=== PATIENT | female | born 1980 | race African-American/Black ===

== ENCOUNTER 2019-10-04 22:45 | Inpatient (IN) ==
--- NOTE | 2019-10-04 23:00 | PROVIDER DOCUMENTATION ---
HPI-Psychological Disorder - General Stated Complaint: pysch Time Seen by Provider: 10/04/19 22:49 Source: patient Allergies/Adverse Reactions: Patient Allergies Allergy/AdvReac Type Severity Reaction Status Date / Time No Known Allergies Allergy Verified 10/04/19 23:16 Home Medications: Home Medication List Medication Instructions Recorded Confirmed Last Taken Type NK [No Home Medications] 10/04/19 10/04/19 Unknown History - History of Present Illness-Psych Nature of Presenting Problem: Patient was brought in by ems with sucidal Ideations. She has been drinking today. She states she has been suicidal before and has been on medications in the past but hasnt taken any for a "minute". She3 told EMS she was going to hang herself with a telephone cord. Onset/Duration: reports: gradual Timing: reports: still present Severity: reports: moderate Situational problems related to:: reports: N/A Psychiatric Complaints: reports: depressed, suicidal ideation Substance Use: reports: none/never, alcohol Previous psych related hospitalizations?: Yes Patient arrived by:: EMS called by patient Similar Symptoms Previously?: Yes Recently seen or treated by another doctor?: No - Suicidal Ideation Suicide Risk Assessment: depressed, prior attempt, drug or ETOH abuse, no social supports Clinician's estimation of suicide risk?: high risk Suicidal Attempt Method: reports: Hanging Review of Systems - Adult - REVIEW OF SYSTEMS - ADULT Constitutional: reports: no symptoms reported Eyes: reports: no symptoms reported Ears, Nose, Mouth & Throat: reports: no symptoms reported Cardiovascular: reports: no symptoms reported Respiratory: reports: no symptoms reported Genitourinary: reports: no symptoms reported Musculoskeletal: reports: no symptoms reported Integumentary: reports: no symptoms reported, see HPI Psychiatric: reports: see HPI Endocrine: reports: no symptoms reported Hematologic/Lymphatic: reports: no symptoms reported Allergic/Immunologic: reports: no symptoms reported Past History - Adult - PAST MEDICAL HISTORY-ADULT Review of Records: reports: Old Records Reviewed, Nursing Assessment Review Major Childhood Illnesses: reports: denies history Cardiovascular: reports: HTN Respiratory: reports: denies history Gastrointestinal: reports: denies history Obstetrical/Gynecological: reports: denies history Genitourinary: reports: denies history Musculoskeletal: reports: denies history Neurological: reports: denies history Psychiatric: reports: bipolar, depression, schizophrenia Endocrine/Immune: reports: denies history Other Conditions: reports: denies history Additional History: PIH - PRIOR SURGERIES/PROCEDURES Surgical/Procedure History: reports: , gastric bypass - IMMUNIZATION STATUS Childhood Immunizations: See Nurse Assessment Flu Vaccine: See Nurse Assessment - FAMILY HISTORY Family History: reviewed, not pertinent Physical Exam-Psych Focus - Physical Exam-Psych Initial Vital Signs Reviewed: Yes Appearance: appropriate appearance, no apparent distress, no memory impairment, alert Neurological: alert, oriented x 3, depressed affect (crying episodes) Behavior/Eye Contact/Speech: good eye contact, normal speech Thoughts/Hallucinations: normal thought pattern, no apparent hallucination HENMT: normocephalic/atraumatic, moist mucous membranes, normal ENT inspection, TMs normal, pharynx normal Neck: non-tender, full range of motion, supple Respiratory: chest non-tender, lungs clear, normal breath sounds, no pleuratic chest pain Cardiovascular: normal peripheral pulses, regular rate, rhythm, no edema, no gallop, no JVD, no murmur Abdominal Exam: normal bowel sounds, non tender, soft, no organomegaly, no pulsatile mass Lymphatic: no adenopathy Back Exam: normal inspection, no CVA tenderness, no vertebral tenderness Extremity: normal range of motion, non-tender, normal gait, no pedal edema Integumentary: normal color, normal turgor, warm/dry Progress - PLAN OF CARE/RESULTS Progress/Plan/Lab Results: Vital Signs - 8 hr 10/04/19 22:55 10/05/19 05:12 Temperature 98.6 F 98.6 F Pulse Rate 108 H 90 Respiratory Rate 16 16 Blood Pressure 141/110 138/82 O2 Sat by Pulse Oximetry 100 98 Laboratory Results - last 24 hr 10/04/19 10/04/19 10/04/19 22:25 22:25 23:01 WBC RBC Hgb Hct MCV MCH MCHC RDW Std Deviation Plt Count MPV Immature Gran % (Auto) Neut % (Auto) Lymph % (Auto) [place] % (Auto) Eos % (Auto) Baso % (Auto) Immature Gran # (Auto) Neut # (Auto) Lymph # (Auto) [place] # (Auto) Eos # (Auto) Baso # (Auto) Sodium 151 H Potassium 3.6 Chloride 107 Carbon Dioxide 23 L Anion Gap 21 BUN 16 Creatinine 0.8 Estimated GFR/1.73 m2 > 60 BUN/Creatinine Ratio 20 Glucose 101 Calculated Osmolality 301 Calcium 8.7 L Total Bilirubin 0.16 L AST 41 H ALT 28 Alkaline Phosphatase 134 H Total Protein 7.6 Albumin 4.0 Globulin 3.6 Albumin/Globulin Ratio 1.1 TSH Urine Test NEGATIVE Urine Opiates Screen NONE DETECTED Ur Oxycodone Screen NONE DETECTED Ur Methadone, Qual NONE DETECTED Ur Barbiturates Screen NONE DETECTED Ur Phencyclidine Scrn NONE DETECTED Ur Amphetamines Screen NONE DETECTED U Benzodiazepines Scrn NONE DETECTED Urine Cocaine Screen NONE DETECTED U Cannabinoids Screen NONE DETECTED Plasma/Serum Ethyl Alc 10/04/19 10/04/19 10/04/19 23:01 23:01 23:01 WBC 4.49 L RBC 4.62 Hgb 12.1 Hct 38.3 MCV 82.9 MCH 26.2 L MCHC 31.6 L RDW Std Deviation 16.4 H Plt Count 249 MPV 9.6 Immature Gran % (Auto) 0.0 Neut % (Auto) 23.2 L Lymph % (Auto) 64.4 H [place] % (Auto) 11.1 H Eos % (Auto) 0.2 Baso % (Auto) 1.1 H Immature Gran # (Auto) 0.00 Neut # (Auto) 1.04 L Lymph # (Auto) 2.89 [place] # (Auto) 0.50 Eos # (Auto) 0.01 Baso # (Auto) 0.05 Sodium Potassium Chloride Carbon Dioxide Anion Gap BUN Creatinine Estimated GFR/1.73 m2 BUN/Creatinine Ratio Glucose Calculated Osmolality Calcium Total Bilirubin AST ALT Alkaline Phosphatase Total Protein Albumin Globulin Albumin/Globulin Ratio TSH 0.80 Urine Test Urine Opiates Screen Ur Oxycodone Screen Ur Methadone, Qual Ur Barbiturates Screen Ur Phencyclidine Scrn Ur Amphetamines Screen U Benzodiazepines Scrn Urine Cocaine Screen U Cannabinoids Screen Plasma/Serum Ethyl Alc 366 H Orders Category Date Time Status ALCOHOL BLOOD Stat Lab 10/04/19 23:01 Completed CBC WITH ELECTRONIC DIFF [HEME] Stat Lab 10/04/19 23:01 Completed COMPREHENSIVE METABOLIC PANEL [CHEM] Stat Lab 10/04/19 23:01 Completed TEST-URINE [PREG] Stat Lab 10/04/19 22:25 Completed TSH Stat Lab 10/04/19 23:01 Completed URINE DRUG SCREEN Stat Lab 10/04/19 22:25 Completed 0.9% Sodium Chloride Inj [Ns] 1,000 ml Med 10/05/19 03:07 Active IV 100 mls/hr 0.9% Sodium Chloride Inj [Ns] 1,000 ml Med 10/05/19 00:23 Discontinued IV 999 mls/hr Lorazepam [Ativan] Med 10/04/19 23:33 Discontinued 0.5 mg IV NOW ONE Result Diagrams: 10/04/19 23:01 10/04/19 23:01 - CONSULTS/PCP/HOSPITALIST Notification #1 *Consult/PCP/Hospitalist*: Jessicao Time Discussed: 19:15 Consult Disposition: Will see in ED, Admit - CHANGE OF SHIFT REPORT (ED Provider) 1 Report Given and Care Transferred to:: Dr Christensen Time of Transfer: 07:00 Items Pending: Other ([facility]) 2 Report Given and Care Transferred to:: Dr Rodriguez Time of Transfer: 19:00 Items Pending: Labs, Physician Consult/Arrival Departure - Departure Date of Disposition Decision: 10/05/19 Time of Disposition Decision: 19:15 DIAGNOSIS: Alcohol abuse Disposition: ADMITTED INPATIENT 09 Certified Medical Emergency: Emergent Condition: Stable Referrals and Follow-Ups: None,PCP [Primary Care Provider] - - Critical Care Note This patient required my direct & personal management of CC.: No Attestation - Physician/ SANTOSH Attestation Patient care was provided by Advanced Practice Provider:: No The physician spent face to face time with patient:: Yes Advanced Practice Provider documentation review:: Supervising physician onsite and consulted in the evaluation and care of this patient. The physician did have a face to face encounter with the patient.
[2019-10-04 23:24] LABS: BASO# 0.05 X1000 (0.0-0.2); BASO% 1.1 % (0.0-0.8); EOS# 0.01 X1000 (0.0-0.7); EOS% 0.2 % (0.0-10.0); HEMATOCRIT 38.3 % (37.0-47.0); HEMOGLOBIN 12.1 g/dL (12.0-16.0); LYMPH# 2.89 X1000 (1.2-3.4); LYMPH% 64.4 % (20.5-51.1); MCH 26.2 PG (27-31); MCHC 31.6 g/dL (33-37); MCV 82.9 FL (81-99); MONO% 11.1 % (1.7-9.3); MPV 9.6 FL (7.4-10.4); NEUT# 1.04 X1000 (1.4-6.5); NEUT% 23.2 % (42.2-75.2); PLT 249 X1000 (130-400); RBC 4.62 XMIL (4.2-5.4); RDW 16.4 % (11.5-14.5); WBC 4.49 X1000 (4.8-10.8)
[2019-10-04] MEDS ORDERED: ATIVAN IV ONE (23:33)
[2019-10-04 23:37] LABS: AGAP 21; ALB/GLOB RATIO 1.1; ALKALINE PHOSPHATASE 134 U/L (32-104); BUN 16 mg/dL (8-22); CALCIUM 8.7 mg/dL (8.8-10.2); CHLORIDE 107 mmol/L (98-107); COSMO 301; CREATININE 0.8 mg/dL (0.5-0.9); ESTIMATED GFR > 60; GLUCOSE 101 mg/dL (70-104); GOT 41 U/L (10-30); GPT 28 U/L (10-36); POTASSIUM 3.6 mmol/L (3.5-5.1); SODIUM 151 mmol/L (136-145); TCO2 23 mmol/L (25-35); TOTAL BILIRUBIN 0.16 mg/dL (0.20-1.00); TOTAL PROTEIN 7.6 g/dL (6.3-8.3)
[2019-10-05 00:06] LABS: UR AMPHETAMINES QUAL NONE DETECTED (NONE DETECT); UR BARBITUATES QUAL NONE DETECTED (NONE DETECT); UR BENZODIAZEPIN QUAL NONE DETECTED (NONE DETECT); UR CANNABINOIDS QUAL NONE DETECTED (NONE DETECT); UR COCAINE QUAL NONE DETECTED (NONE DETECT); UR METHADONE QUAL NONE DETECTED (NONE DETECT); UR OPIATES QUAL NONE DETECTED (NONE DETECT); UR OXYCODONE QUAL NONE DETECTED (NONE DETECT); UR PCP QUAL NONE DETECTED (NONE DETECT)
[2019-10-05] MEDS ORDERED: NS 1,000 ML IV ONE ×3 (00:23→08:41)
[2019-10-05] MEDS ORDERED: ZOFRAN IV ONE (08:41)
[2019-10-05] MEDS ORDERED: TYLENOL PO ONE ×2 (10:14→21:19)
[2019-10-05] MEDS ORDERED: THIAMINE 100 MG in NS 50 ML IV ONE (22:37)
[2019-10-05] MEDS ORDERED: LIBRIUM PO PRN (22:39)
[2019-10-05] MEDS ORDERED: NS 1,000 ML IV SCH (22:45)
[2019-10-05] MEDS ORDERED: THIAMINE 100 MG in NS 50 ML IV SCH (22:45)
[2019-10-05] MEDS ORDERED: FOLIC ACID 1 MG in NS 50 ML IV SCH (23:48)
[2019-10-06] MEDS ORDERED: ZOFRAN IV PRN (05:41)
[2019-10-06] MEDS ORDERED: PRILOSEC PO SCH (07:00)
--- NOTE | 2019-10-06 07:22 | HISTORY AND PHYSICAL ---
CHIEF COMPLAINT: Suicidal ideation. HISTORY OF PRESENT ILLNESS: Ms. Aaliyah Mcarthur is a 39-year-old female who has a history of chronic alcoholism and depression. The patient was brought into the emergency department by EMS because of suicidal ideation. The patient told EMS that she was going to hang herself using a telephone cord. She is a chronic alcoholic and drinks about 1 point of alcohol on most days of the week, for about 10 years. When she presented to the hospital, alcohol level was elevated at 366. The patient has now been admitted to the floor for further management. PAST MEDICAL HISTORY: Chronic alcoholism, major depression, hypertension. SOCIAL HISTORY: She smokes cigarettes and drinks alcohol. No drug use. ALLERGIES: No known drug allergies. PAST SURGICAL HISTORY: She has had a cholecystectomy as well as gastric bypass. FAMILY HISTORY: Positive for diabetes as well as cancer. MEDICATIONS: None. REVIEW OF SYSTEMS: Constitutional: No fever. FLAGSETTER: No headaches. Eyes: No blurred vision. ENT: No sinus problems or hearing loss. Cardiovascular: No chest pain. Respiratory: No cough. GI: She does have some nausea and abdominal pain. : No dysuria. Musculoskeletal: No joint pains. Endocrinology: No thyroid disease or diabetes. Hematology: No bleeding problems. Psychiatric: She does have anxiety with depression. PHYSICAL EXAMINATION: VITAL SIGNS: Temperature is 98.4 degrees, pulse 93, respirations 15, blood pressure 165/114, oxygen saturation 100%. HEENT: She is atraumatic, normocephalic. She is anicteric. Extraocular movements intact. No oral lesions noted. NECK: No lymphadenopathy or thyromegaly. CARDIOVASCULAR SYSTEM: S1, S2. No gallops, rubs, or murmurs. RESPIRATORY SYSTEM: Has evidence of good air entry bilaterally. ABDOMEN: Soft, nontender. No masses felt. EXTREMITIES: No evidence of edema. CENTRAL NERVOUS SYSTEM: No obvious focal deficits noted. LABORATORY DATA: WBCs 4.49, hematocrit is 38.3, platelet count is 249,000. Sodium is 151, potassium is 3.6, chloride is 107, bicarb is 23, BUN is 16, creatinine 0.8. AST is 41, alkaline phosphatase 134. Alcohol level is 366. ASSESSMENT AND PLAN: 1. Alcoholic intoxication. We will maintain patient on delirium tremens prophylaxis. Place on thiamine, folic acid, multivitamin. Check magnesium as well as a phosphorus level. Replace those as needed. Check CPK levels. The patient will need to enroll in a program that will sustain detox. 2. Major depression with suicidal ideation. I will start patient on antidepressant and will need psychiatric evaluation. 3. Hypertension. Optimize blood pressure control. 4. Hypernatremia. We will repeat sodium level and manage accordingly. 5. Deep vein thrombosis prophylaxis. Sequential compression devices. 6. Gastrointestinal prophylaxis. Proton pump inhibitor. cc: Parviz Hinojosa MD
[2019-10-06] MEDS ORDERED: LABETALOL IV PRN (07:46)
[2019-10-06 08:11] LABS: BASO# 0.01 X1000 (0.0-0.2); BASO% 0.3 % (0.0-0.8); EOS# 0.02 X1000 (0.0-0.7); EOS% 0.7 % (0.0-10.0); HEMATOCRIT 32.9 % (37.0-47.0); HEMOGLOBIN 10.2 g/dL (12.0-16.0); LYMPH# 1.67 X1000 (1.2-3.4); LYMPH% 54.4 % (20.5-51.1); MCV 83.9 FL (81-99); MONO# 0.63 X1000 (0.11-0.59); MONO% 20.5 % (1.7-9.3); MPV 10.1 FL (7.4-10.4); NEUT# 0.74 X1000 (1.4-6.5); NEUT% 24.1 % (42.2-75.2); PLT 156 X1000 (130-400); RBC 3.92 XMIL (4.2-5.4); RDW 15.9 % (11.5-14.5); WBC 3.07 X1000 (4.8-10.8)
[2019-10-06 08:17] LABS: AGAP 12; ALB/GLOB RATIO 1.4; ALBUMIN 3.6 g/dL (3.5-5.0); ALKALINE PHOSPHATASE 106 U/L (32-104); BUN 9 mg/dL (8-22); CALCIUM 8.5 mg/dL (8.8-10.2); CHLORIDE 101 mmol/L (98-107); COSMO 275; CREATININE 0.6 mg/dL (0.5-0.9); ESTIMATED GFR > 60; GLUCOSE 82 mg/dL (70-104); GOT 33 U/L (10-30); GPT 25 U/L (10-36); POTASSIUM 3.1 mmol/L (3.5-5.1); SODIUM 139 mmol/L (136-145); TCO2 26 mmol/L (25-35); TOTAL BILIRUBIN 0.46 mg/dL (0.20-1.00); TOTAL PROTEIN 6.1 g/dL (6.3-8.3)
[2019-10-06] MEDS ORDERED: KLOR-CON PO ONE (08:31)
[2019-10-06 08:46] LABS: BANDS 2 % (0-1); LYMPHS 54 % (21-51); MONO 14 % (1-9); SEGS 24 % (42-75)
[2019-10-06 08:51] LABS: HYPOCHROM 1+
[2019-10-06] MEDS ORDERED: ZOLOFT PO SCH (09:00)
[2019-10-06] MEDS ORDERED: TRANDATE PO SCH (09:00)
[2019-10-06] MEDS ORDERED: THERA M PLUS PO SCH (09:00)
--- NOTE | 2019-10-06 11:48 | DISCHARGE SUMMARY ---
ADMISSION DATE: 10/05/2019 DISCHARGE DATE: 10/06/2019 DISPOSITION: Home with a recommendation for the patient to self-admit to [facility] for detox rehab. ADMISSION DIAGNOSES: 1. Alcohol intoxication. 2. Major depression with suicidal ideation. 3. Hypertension. 4. Hyponatremia. DIAGNOSES AT THE TIME OF DISCHARGE: 1. Altered mental status secondary to alcohol intoxication on admission. 2. Alcohol use and abuse. 3. Major depression with suicidal ideation on admission. 4. Hypertension. 5. Clinical volume depletion. MEDICATIONS FOR DISCHARGE: 1. Gabapentin 100 mg b.i.d. 2. Multivitamin 1 tablet daily. 3. Labetalol 200 mg b.i.d. 4. Sertraline 50 mg p.o. every night at bedtime. PRESENTING COMPLAINT: Suicidal ideation. HISTORY OF PRESENTING COMPLAINT/HOSPITAL COURSE: Ms. Macrthur is a 39-year-old female with a history of alcohol use and abuse, major depression, hypertension, who was admitted to [facility] in February to April of last year because of alcohol related issues. She came in this time because she says she has some issues with her boyfriend, broke up, and then started bingeing on alcohol and associated with some suicidal ideation. She was brought into the emergency room. She was evaluated at the time, and her alcohol level was 366. This got down to 37 on the same day later on. There have been multiple calls and a search for placement for Ms. Mcarthur. However, she either turns them down or she gives an excuse of being too far. Ms Mcarthur was subsequently admitted for medical management. She has been screened by Karoline Montanez as well. She currently denies any suicidal ideation. There is a plan for her to self-admit at [facility] in [place] for detox and alcohol-related behavior issues. From medical standpoint, we think she is stable enough to be discharged. She has been counseled on multiple occasions about alcohol cessation and the need for her to go through the alcohol program. All the discharge instructions were discussed with her. She voiced understanding. At this point, Ms. Mcarthur is completely lucid with no neurological defects. Her vital signs are stable, slightly hypertensive, but otherwise all the other vital signs are unremarkable. Her physical exam at this point is completely unremarkable. TIME SPENT: The time spent for discharge is 35 minutes. cc: Mp Luo MD
[2019-10-06 13:26] VITALS: BP 150/98
[2019-10-06] MEDS ORDERED: THIAMINE 100 MG in NS 50 ML IV SCH (22:00)
== END 2019-10-06 15:37 | disposition home or self-care (01) | DRG 897 ==
LOC: ED 22:45 → SUATTDRO 10-05 23:04 → 3N 10-05 23:04
PROVIDERS: ATTEND Internal Medicine